=== PATIENT | male | born 1950 | race Caucasian/White ===

== ENCOUNTER 2018-10-28 07:30 | Outpatient (CLI) | payer MEDICARE, BC ==
--- NOTE | 2018-10-28 08:40 | ULT ---
ULTRASOUND HEPATIC DOPPLER: Date: 10/28/18 HISTORY: Elevated liver enzymes. COMPARISON: None. TECHNIQUE: Real-time Fuentes scale and color Doppler with spectral analysis of the liver was performed. FINDINGS: There is diffuse increased hepatic echotexture. Liver measures 17.0 cm in length. Gallbladder is norm al. No pericholecystic fluid. Portal vein is patent with antegrade flow. Normal phasicity. Hepatic ve ins are patent. Common bile duct is normal. Spleen measures 11.0 cm in length. Splenic artery and vein are patent. IMPRESSION: 1. Mildly increased hepatic echotexture suggesting hepatic steatosis. 2. Normal directional vascular flow and phasicity. POS: CET
== END 2018-10-28 07:31 | disposition home or self-care (01) ==
LOC: BICULT 07:30
PROVIDERS: ATTEND Physician Assistant Medical
DX: R74.8 Abnormal levels of other serum enzymes (principal); K76.9 Liver disease, unspecified
CPT/HCPCS: 76705

== ENCOUNTER 2019-07-26 08:00 | Outpatient (CLI) | payer MEDICARE, BC ==
--- NOTE | 2019-07-27 21:29 | EKG ---
Test Reason : Blood Pressure : / mmHG Vent. Rate : 050 BPM Atrial Rate : 050 BPM P-R Int : 176 ms QRS Dur : 088 ms QT Int : 436 ms P-R-T Axes : 033 057 026 degrees QTc Int : 397 ms Sinus bradycardia Otherwise normal ECG No previous ECGs available Confirmed by Mer BANG ([id number]) on 07/27/2019 9:29:35 PM Referred By: PENG Confirmed By:Mer BANG
== END 2019-07-26 08:01 | disposition home or self-care (01) ==
LOC: LABBT 08:00
PROVIDERS: ATTEND Urology
DX: Z01.818 Encounter for other preprocedural examination (principal); N40.1 Benign prostatic hyperplasia with lower urinary tract symptoms; R97.20 Elevated prostate specific antigen [PSA]
CPT/HCPCS: 93005; 93010

== ENCOUNTER 2019-07-31 08:55 | Outpatient (CLI) | payer MEDICARE, BC ==
[2019-07-31 10:08] LABS: Prothrombin Time 13.5 SEC (12.0-14.7)
[2019-07-31 10:09] LABS: PTT 32.8 SEC (22.9-36.1)
== END 2019-07-31 08:56 | disposition home or self-care (01) ==
LOC: LABBT 08:55
PROVIDERS: ATTEND Urology
DX: Z01.812 Encounter for preprocedural laboratory examination (principal); N40.1 Benign prostatic hyperplasia with lower urinary tract symptoms; R97.20 Elevated prostate specific antigen [PSA]
CPT/HCPCS: 85610; 85730

== ENCOUNTER 2019-08-03 07:57 | Day surgery (SDC) | payer MEDICARE, BC ==
[2019-07-26 14:56] LABS: Bacteria/HPF None Seen HPF (None Seen); Bilirubin Negative (Negative); Blood, Urine Negative (Negative); Clarity Clear (Clear); Glucose, Urine (Dipstick) Normal (Negative); Leukocyte Negative Leu/uL (Negative); Nitrite Negative (Negative); Protein, Urine (Dipstick) 20 mg/dL (Neg-Trace); RBC/HPF 0-3 HPF (0-3); Squamous Epithelial None Seen HPF (0-3); Urobilinogen Normal mg/dL (Less than 2); WBC/HPF 0-3 HPF (0-3)
[2019-07-26 17:59] LABS: Anion Gap 13 mmol/L (10-20); BUN (Urea Nitrogen) 22 mg/dL (8.4-25.7); Calc. Creatinine Clearance 0 mL/min (70-130); Calcium 9.6 mg/dL (7.8-10.44); Carbon Dioxide 27 mmol/L (23-31); Chloride 103 mmol/L (98-107); Estimated GFR-MDRD 60; Glucose 107 mg/dL (80-115); Potassium 3.9 mmol/L (3.5-5.1); Sodium 139 mmol/L (136-145)
[2019-07-26 19:37] LABS: #Basophils 0.1 thou/uL (0.0-0.2); #Eosinphils 0.3 thou/uL (0.0-0.7); #Lymphocytes 1.6 thou/uL (1.20-3.40); #Monocytes 0.8 thou/uL (0.11-0.59); #Neutrophils 4.9 thou/uL (1.40-6.50); %Basophils 1.1 % (0.0-1.0); %Eosinophils 3.6 % (0.0-10.0); %Lymphocytes 20.3 % (21.0-51.0); %Monocytes 10.7 % (0.0-10.0); %Neutrophils 64.3 % (42.0-75.0); Hemoglobin 16.2 g/dL (14.0-18.0); Mean Corpuscular HGB CONC 31.9 g/dL (32.0-36.0); Mean Corpuscular Hemoglobin 29.9 pg (27.0-31.0); Mean Corpuscular Volume 93.7 fL (78.0-98.0); Mean Platelet Volume 9.2 fL (7.4-10.4); Platelet Count 167 thou/uL (130-400); RBC Distribution Width 12.6 % (11.5-14.5); Red Blood Cell (RBC) Count 5.41 mill/uL (4.70-6.10); White Blood Cell (WBC) Count 7.7 thou/uL (4.8-10.8)
[2019-08-02 11:37] VITALS: BMI 30.5
[2019-08-03] MEDS ORDERED: Levofloxacin 500 mg/D5W 100 ml Premix Bag ONE (08:43)
[2019-08-03] MEDS ORDERED: Fentanyl 100 MCG/2 ML VIAL ONE (10:23)
[2019-08-03] MEDS ORDERED: hydrALAZINE 20 MG/ML VIAL SLOW IVP PRN (10:31)
[2019-08-03] MEDS ORDERED: Acetaminophen 500 MG TAB PO PRN (10:31)
[2019-08-03] MEDS ORDERED: Mag-Al 1200 mg/1200 mg/30 ML UDCUP PO PRN (10:31)
[2019-08-03] MEDS ORDERED: Dextrose 50% Abboject 50 ML SYRINGE SLOW IVP PRN (10:31)
[2019-08-03] MEDS ORDERED: Phenazopyridine HCl 97.5 MG TABLET PO PRN (10:31)
[2019-08-03] MEDS ORDERED: Hyoscyamine Sulfate SL 0.125 mg Tablet SL PRN (10:31)
[2019-08-03] MEDS ORDERED: Oxybutynin 5 MG TAB PO PRN (10:31)
[2019-08-03] MEDS ORDERED: Ondansetron PF 4 MG/2 ML Vial IVP PRN (10:31)
[2019-08-03] MEDS ORDERED: HumaLOG 300 UNITS/3 ML VIAL SC PRN (10:31)
[2019-08-03] MEDS ORDERED: diphenhydrAMINE 25 MG CAP PO PRN (10:31)
[2019-08-03] MEDS ORDERED: Dextrose 5% in Water 1,000 ML IV PRN (10:31)
[2019-08-03] MEDS ORDERED: Morphine 2 MG/ML SYRINGE SLOW IVP PRN (10:31)
[2019-08-03] MEDS ORDERED: traMADol HCl 50 MG TAB PO PRN (10:34)
[2019-08-03] MEDS ORDERED: B & O ONE (11:52)
--- NOTE | 2019-08-03 12:53 | OP ---
DATE OF PROCEDURE: 08/03/2019 SERVICE: Urology. PREOPERATIVE DIAGNOSIS: BPH with urinary obstruction. POSTOPERATIVE DIAGNOSIS: BPH with urinary obstruction. PROCEDURE PERFORMED: Transurethral resection of the prostate. INDICATION FOR PROCEDURE: Mr. Hart is a 68-year-old white male, who previously had seen me for BPH complaints. We have started him on Rapaflo, which had helped his symptoms, but he did not want to remain on medication indefinitely and did not have complete relief of symptoms. We discussed UroLift, but his prostate was too large, so we elected to opt to go for TURP instead. Risks and benefits of the surgery were discussed and he has agreed to proceed forward. DESCRIPTION OF PROCEDURE: After identification of armband and verification of consent, the patient was brought back to the operating room, where he underwent general anesthesia with LMA. He was then placed in dorsal lithotomy position and prepped and draped in usual sterile fashion. After appropriate time-out, a lubricated 26-Greenlandic resectoscope sheath with visual obturator was passed through the urethra into the bladder. Both ureteral orifices were noted in the orthotopic location. The visual obturator was switched out for the bipolar prostate resectoscope loop and resection was started at the bladder neck and taken back to the verumontanum circumferentially. Relaxing incisions were made at 5 o'clock and 7 o'clock on the bladder neck for a wide open bladder neck. All intervening tissue was resected until we were close to, but not through the capsule. Resection was taken up to the verumontanum, but not past that to avoid sphincteric injury. Upon completion, the prostate was wide open. There did not appear to be any injuries to the sphincter or to the bladder mucosa. Both ureters were identified in orthotopic location. All chips were evacuated using the [place] evacuator or manually with the resectoscope, and meticulous hemostasis was then performed of all tissues until there was no bleeding visualized. Upon completion, the resectoscope was removed and a 22-Greenlandic three-way Santos catheter was placed into the patient's bladder. A 30 mL of sterile water was placed into the balloon and CBI initiated. The patient had his catheter affixed with a StatLock, and had B and O suppository placed in his rectum. He was then taken fully out of positioning, awakened, and taken to PACU for recovery in stable condition. COMPLICATIONS: None. ESTIMATED BLOOD LOSS: Minimal. RETAINED TUBES AND DRAINS: A 22-Greenlandic three-way Santos catheter. SPECIMENS: Prostate chips. DISPOSITION: The patient will be kept in the hospital overnight. We will plan for CBI to be discontinued tomorrow and then a void trial and be discharged to home with followup on an outpatient basis. Job ID: [id number]
[2019-08-03] MEDS ORDERED: Ketorolac Tromethamine 30 MG/ML VIAL ONE (14:49)
[2019-08-03] MEDS ORDERED: ePHEDrine/0.9% NaCl/PF SYRINGE 50 mg/10 ml ONE (14:49)
[2019-08-03] MEDS ORDERED: Lidocaine 1% PF 5 ML VIAL ONE (14:49)
[2019-08-03] MEDS ORDERED: PHENYLEPHRINE-NS 100 MCG/ML 10 ML SYRINGE ONE (14:49)
[2019-08-03] MEDS ORDERED: PROPOFOL 200 MG/20 ML VIAL ONE (14:49)
[2019-08-03] MEDS ORDERED: Amlodipine 5 MG TAB PO SCH (21:00)
[2019-08-03] MEDS ORDERED: Atorvastatin Calcium 10 MG TAB PO SCH (21:00)
[2019-08-03] MEDS ORDERED: Nebivolol HCl 5 MG TAB PO SCH (21:00)
[2019-08-03] MEDS: Docusate 100 MG CAP PO SCH (21:01)
[2019-08-03] MEDS: Lisinopril/Hydrochlorothiazide 20 mg/12.5 mg Tablet PO SCH (21:01)
[2019-08-04 05:43] LABS: #Eosinphils 0.2 thou/uL (0.0-0.7); #Lymphocytes 1.2 thou/uL (1.20-3.40); #Monocytes 0.7 thou/uL (0.11-0.59); %Basophils 0.7 % (0.0-1.0); %Eosinophils 3.3 % (0.0-10.0); %Lymphocytes 16.4 % (21.0-51.0); %Monocytes 10.2 % (0.0-10.0); %Neutrophils 69.4 % (42.0-75.0); Hemoglobin 14.5 g/dL (14.0-18.0); Mean Corpuscular HGB CONC 33.7 g/dL (32.0-36.0); Mean Corpuscular Hemoglobin 30.8 pg (27.0-31.0); Mean Corpuscular Volume 91.4 fL (78.0-98.0); Mean Platelet Volume 9.1 fL (7.4-10.4); Platelet Count 157 thou/uL (130-400); Red Blood Cell (RBC) Count 4.72 mill/uL (4.70-6.10); White Blood Cell (WBC) Count 7.2 thou/uL (4.8-10.8)
[2019-08-04 06:14] LABS: Anion Gap 12 mmol/L (10-20); BUN (Urea Nitrogen) 29 mg/dL (8.4-25.7); Calc. Creatinine Clearance 70 mL/min (70-130); Calcium 8.6 mg/dL (7.8-10.44); Carbon Dioxide 23 mmol/L (23-31); Chloride 106 mmol/L (98-107); Estimated GFR-MDRD 55; Glucose 105 mg/dL (80-115); Potassium 4.4 mmol/L (3.5-5.1); Sodium 137 mmol/L (136-145)
[2019-08-04] MEDS: Lisinopril/Hydrochlorothiazide 20 mg/12.5 mg Tablet PO SCH (08:30)
[2019-08-04] MEDS: Docusate 100 MG CAP PO SCH (08:31)
[2019-08-04] MEDS ORDERED: Alogliptin 25 MG TAB PO SCH (09:00)
[2019-08-04 12:24] VITALS: BP 151/73; TEMP 98.4
--- NOTE | 2019-08-04 15:41 | PRG ---
DATE OF SERVICE: 08/04/2019 SUBJECTIVE: Patient states he is feeling fine. He has no pain. He has no significant bladder spasms, chest pain, or shortness of breath. OBJECTIVE: VITAL SIGNS: Temperature 98.4, pulse 60, respirations 18, blood pressure 151/73, saturation 91% on room air. GENERAL: No apparent distress. Communicative and alert. CARDIOVASCULAR: Regular rate and rhythm. Normal S1, S2. ABDOMEN: Soft, nontender, and nondistended. Positive bowel sounds. CHEST: No increased work of breathing, symmetric expansion of lungs, clear anteriorly. : Santos catheter in place, draining light pink urine off CBI. EXTREMITIES: No clubbing, cyanosis, or edema. LABORATORY DATA: The full set of labs are in the [facility] system, which I have reviewed. Of note, the patient's hemoglobin is 14.5 with a platelet count of 157. Creatinine is 1.29. ASSESSMENT AND PLAN: A 68-year-old white male, status post TURP, postoperative day 1, recovering very well. We will do a void trial so long as he is able to urinate with relatively clear urine. I think he can be discharged home. He can follow up with me in approximately 2 to 3 weeks for postop check. Job ID: [id number]
--- NOTE | 2019-08-05 02:20 | DIS ---
DATE OF ADMISSION: 08/03/2019 DATE OF DISCHARGE: 08/04/2019 ADMITTING: Amos Kyle MD. DISCHARGING: Amos Kyle MD ADMITTING DIAGNOSIS: BPH. DISCHARGE DIAGNOSES: BPH. PROCEDURE PERFORMED: Transurethral resection of prostate. BRIEF HISTORY: Mr. Hart is a 68-year-old white male with history of BPH and urinary symptoms. He has come into the hospital for a TURP. Please see the full H and P scanned into the [facility] for full history and physical. HOSPITAL COURSE: The patient underwent TURP (please see operative note for details). Postoperatively, he was kept in the hospital on CBI. His urine looked relatively clear. The next day, although it was still having some mild hematuria. CBI was stopped. Urine was not excessively bloody. He voided 3 times, which subsequently got clear and more clear. The patient was deemed stable and enough to be discharged home and was sent home without any further complications. DISPOSITION: Discharge to home. DISCHARGE CONDITION: Good. DISCHARGE MEDICATIONS: Resuming all of his home medications except his aspirin, which he will hold as long as his urine is bloody and he does not need to take Flomax anymore. Additionally, he was given prescriptions for tramadol, Colace, Pyridium, and oxybutynin. DISCHARGE INSTRUCTIONS: Explained to the patient. He will follow up with me in 2 to 3 weeks for postop check. Job ID: [id number]
== END 2019-08-04 15:00 | disposition home or self-care (01) ==
LOC: SDC 07:57 → SURG B 15:55 → SDC 08-04 15:00
PROVIDERS: ATTEND Urology
PROC: 0VT08ZZ Resection of Prostate, Via Natural or Artificial Opening Endoscopic (ICD-10-PCS; principal; 2019-08-03)
DX: N40.1 Benign prostatic hyperplasia with lower urinary tract symptoms (principal); N13.8 Other obstructive and reflux uropathy; I10 Essential (primary) hypertension; E11.9 Type 2 diabetes mellitus without complications; Z79.84 Long term (current) use of oral hypoglycemic drugs; Z79.899 Other long term (current) drug therapy
CPT/HCPCS: 36415; 36416; 80048; 81001; 85025; 87086; 88305; J1885; J1956; J2001; J2704; J3010